=== PATIENT | female | born 1955 | race African-American/Black ===

== ENCOUNTER 2019-08-13 12:33 | Emergency (ER) | payer OTHER ==
[~2019-08-13] VITALS: Ht 165.1 cm; Wt 90.7 kg
[2019-08-13 12:45] VITALS: BP 148/87
--- NOTE | 2019-08-13 13:42 | PHYS DOC ---
Past Medical History Past Medical History: Cancer, Hypertension Additional Past Medical Histor: LEFT BREAST MASTECTOMY Past Surgical History: Other Additional Past Surgical Histo: LEFT MASTECTOMY,CYST REMOVED FROM RIGHT NECK Alcohol Use: None Drug Use: None Adult General Chief Complaint Chief Complaint: OTHER COMPLAINTS HPI HPI Patient is a 63 year old f p/w foreign body sensation throat swallowed glucosamine felt like it got stuck points to upper esophagus area just below cricoid cartilage no sob speech good er course: it went down on its own she was asymptomatic and left without any intervention needed Allergies Allergies Allergies Coded Allergies Type Severity Reaction Last Updated Verified No Known Drug Allergies 08/13/19 No Physical Exam Physical Exam Constitutional: Well developed, well nourished, no acute distress, non-toxic appearance. [] HENT: Normocephalic, atraumatic, bilateral external ears normal, oropharynx moist, no oral exudates, nose normal. [] Neck: Normal range of motion, no tenderness, supple, no stridor. [] Skin: Warm, dry, no erythema, no rash. [] Current Patient Data Vital Signs Vital Signs Date Time Temp Pulse Resp B/P (MAP) Pulse Ox O2 Delivery O2 Flow Rate FiO2 08/13/19 12:45 98.6 95 16 148/87 (107) 95 Room Air 98.6 EKG EKG [] Radiology/Procedures Radiology/Procedures [] Course & Med Decision Making Course & Med Decision Making Pertinent Labs and Imaging studies reviewed. (See chart for details) []see ed course for tim Mills Disclaimer Dragon Disclaimer This electronic medical record was generated, in whole or in part, using a voice recognition dictation system. Departure Departure Impression: Primary Impression: Foreign body sensation in throat Disposition: 01 HOME, SELF-CARE Condition: STABLE Patient Instructions: Foreign Body-Brief HARSH STOCKTON MD Aug 13, 2019 13:42
== END 2019-08-13 13:30 | disposition home or self-care (01) ==
LOC: ER 12:33
DX: R09.89 Other specified symptoms and signs involving the circulatory and respiratory systems (principal); I10 Essential (primary) hypertension; Z90.12 Acquired absence of left breast and nipple
CPT/HCPCS: 99281

== ENCOUNTER 2019-08-20 21:32 | Emergency (ER) | payer OTHER ==
[~2019-08-20] VITALS: Ht 165.1 cm; Wt 90.7 kg
[2019-08-20 21:54] VITALS: BP 126/68
[2019-08-20] MEDS ORDERED: FLUORESCEIN OPHTH TEST STRIP. ONE (22:11)
[2019-08-20] MEDS ORDERED: TETRACAINE 0.5% OPHTH SOLUTION 4ML BOTTLE. ONE (22:12)
[2019-08-20] MEDS ORDERED: GENT3.5O9 OS (22:48)
[2019-08-20] MEDS ORDERED: DIAZ5TAB PO (22:48)
--- NOTE | 2019-08-20 22:48 | PHYS DOC ---
Past Medical History Past Medical History: Cancer, Hypertension Additional Past Medical Histor: LEFT BREAST MASTECTOMY (GILMER MONAHAN APRN) Past Surgical History: Other Additional Past Surgical Histo: LEFT MASTECTOMY,CYST REMOVED FROM RIGHT NECK (GILMER MONAHAN APRN) Alcohol Use: None Drug Use: None (GILMER MONAHAN APRN) Adult General Chief Complaint Chief Complaint: EYE PROBLEMS HPI HPI Patient is a 63 year old female presents with left eye pain that started about 1:00 today. The patient states she had just put her contacts in and she thinks she scratched her eye with her contacts. Her left eyes been swollen and red ever since that time. She states that her eye is irritated a level 10 out of 10. (GILMER MONAHAN APRN) Review of Systems Review of Systems Constitutional: Denies fever or chills [] Eyes: Reports L eye redness, and irritation. HENT: Denies nasal congestion or sore throat [] Respiratory: Denies cough or shortness of breath [] Cardiovascular: No additional information not addressed in HPI [] GI: Denies abdominal pain, nausea, vomiting, bloody stools or diarrhea [] : Denies dysuria or hematuria [] Musculoskeletal: Denies back pain or joint pain [] Integument: Denies rash or skin lesions [] Neurologic: Denies headache, focal weakness or sensory changes [] Endocrine: Denies polyuria or polydipsia [] Complete systems were reviewed and found to be within normal limits, except as documented in this note. (GILMER MONAHAN APRN) Current Medications Current Medications Current Medications Medications (Trade) Dose Ordered Sig/Kevin Start Time Stop Time Status Last Admin Dose Admin Fluorescein Sodium (Ful-Vivi) 1 strip STK-MED ONCE 08/20/19 22:11 08/20/19 22:11 DC Tetracaine HCl (Tetracaine) 40 drop STK-MED ONCE 08/20/19 22:12 08/20/19 22:13 DC (GILMER NORIEGA DO) Allergies Allergies Allergies Coded Allergies Type Severity Reaction Last Updated Verified No Known Drug Allergies 08/13/19 No (GILMER NORIEGA DO) Physical Exam Physical Exam Constitutional: Well developed, well nourished, no acute distress, non-toxic appearance. [] HENT: Normocephalic, atraumatic, bilateral external ears normal, oropharynx moist, no oral exudates, nose normal. [] Eyes: PERRLA, EOMI, conjunctiva red on left eye, no discharge. Patient has a corneal abrasion on the upper cornea on the left eye. Neck: Normal range of motion, no tenderness, supple, no stridor. [] Skin: Warm, dry, no erythema, no rash. [] Back: No tenderness, no CVA tenderness. [] Extremities: No tenderness, no cyanosis, no clubbing, ROM intact, no edema. [] Neurologic: Alert and oriented X 3, normal motor function, normal sensory function, no focal deficits noted. [] Psychologic: Affect normal, judgement normal, mood normal. [] (GILMER MONAHAN APRN) Current Patient Data Vital Signs Vital Signs Date Time Temp Pulse Resp B/P (MAP) Pulse Ox O2 Delivery O2 Flow Rate FiO2 08/20/19 21:54 97.6 17 126/68 (87) 100 Room Air 97.6 (GILMER NORIEGA DO) EKG EKG [] (GILMER MONAHAN APRN) Radiology/Procedures Radiology/Procedures [] (GILMER MONAHAN APRN) Course & Med Decision Making Course & Med Decision Making Pertinent Labs and Imaging studies reviewed. (See chart for details) Appears to have corneal abrasion. Will place on Gentamycin ointment and then will have take Valium at night for eye healing. (GILMER MONAHAN APRN) Dragon Disclaimer Dragon Disclaimer This electronic medical record was generated, in whole or in part, using a voice recognition dictation system. (GILMER MONAHAN APRN) Departure Departure Impression: Primary Impression: Corneal abrasion due to contact lens Disposition: 01 HOME, SELF-CARE Condition: STABLE Referrals: UNKNOWN PCP NAME (PCP) Patient Instructions: Eye - Corneal Abrasion Additional Instructions: Thank you for visiting [facility]. We appreciate you trusting us with your care. If any additional problems come up don't hesitate to return to visit us. Please follow up with your primary care provider so they can plan additional care if needed and know about the problem that you had. If symptoms worsen come back to the Emergency Department. Any concerning symptoms that start such as chest pain, shortness of air, weakness or numbness on one side of the body, running high fevers or any other concerning symptoms return to the ER. Please fill your medications at any pharmacy and follow the prescription instructions. You have been prescribed an antibiotic today to help fight your infection. Please take all of the antibiotic as directed. If after 48 hours the infection is not improving, please return for more care. If the infection worsens, return to ER for additional care. Scripts Diazepam (VALIUM) 5 Mg Tablet 5 MG PO HS for 2 Days, #2 TAB Prov: GILMER MONAHAN APRN 08/20/19 Gentamicin Sulfate (GENTAMICIN SULFATE 0.3% OPHTH OINT) 3.5 Gm Oint...g. 1 JACQUELINE OS TID for 5 Days, TUBE 1/2 inch TID x 5 days Prov: GILMER MONAHAN APRN 08/20/19 Attending Signature Attending Signature I have reviewed the PA/SAP TECHNICAL DEVELOPER's note and plan of care. I was available for consultation as needed during the patient's visit in the emergency department. I agree with the clinical impression, plan, and disposition. (GILMER NORIEGA DO) Problem Qualifiers Primary Impression: Corneal abrasion due to contact lens Laterality: left Qualified Codes: H18.822 - Corneal disorder due to contact lens, left eye GILMER MONAHAN APRN Aug 20, 2019 22:48 GILMER NORIEGA DO Aug 21, 2019 00:26
== END 2019-08-20 23:06 | disposition home or self-care (01) ==
LOC: ER 21:32
DX: H18.822 Corneal disorder due to contact lens, left eye (principal); I10 Essential (primary) hypertension; Z90.12 Acquired absence of left breast and nipple
CPT/HCPCS: 99283